=== PATIENT | female | born 1985 | race Caucasian/White ===

== ENCOUNTER 2018-09-28 13:13 | Inpatient (IN) | END 2018-09-29 15:00 | disposition home or self-care (01) | DRG 833 ==

== ENCOUNTER 2018-12-16 13:25 | Inpatient (IN) | payer OTHER ==
[~2018-12-16] VITALS: Ht 160 cm; Wt 71.5 kg
[~2018-12-16 13:25] MED LIST: PREN1TAB71 PO
[2018-12-16] MEDS ORDERED: OXYTOCIN 30 UNITS/LR 500 ML IV SCH (14:30)
[2018-12-16] MEDS ORDERED: OXYTOCIN 30 UNITS/LR 500 ML IV PRN (14:30)
[2018-12-16] MEDS ORDERED: CARBOPROST 250 MCG INJ IM PRN (14:30)
[2018-12-16] MEDS ORDERED: CEFAZOLIN 2 GM/50 ML (PMX) 50 ML IVPB SCH (14:30)
[2018-12-16] MEDS ORDERED: MISOPROSTOL 200 MCG TAB PR PRN (14:30)
[2018-12-16] MEDS ORDERED: METHYLERGONOVINE 0.2 MG INJ IM PRN (14:30)
[2018-12-16 15:36] VITALS: Ht 160 cm; Wt 71.5 kg
[2018-12-16] MEDS: BETAMET NA PHOS/AC(6 MG/ML) 2 ML INJ SYG IM SCH (15:36)
[2018-12-16] MEDS: LACTATED RINGER'S 1,000 ML IV SCH ×2 (17:01→23:12)
--- NOTE | 2018-12-16 21:20 | HP ---
Date/Time of Note Date/Time of Note DATE: 12/16/18 TIME: 21:08 OB - History Hx of Present Free Text/Dictation 33 y.o. G1 with an IUP at 35w 4d by dates admitted for steroid administration and delivery by after 24 hours. Pt has a twin as a result of injectable infertility meds and IUI due to low ovarian reserve. The twins are Di-Di and, most remarkably, had an episode of severe growth restriction and very low fluid with twin A at 24 weeks and received steroids and opted for bedrest and twin A eventually regained fluid and started to grow again and all has been OK until now. Today she was seen by Dr Martell and Twin A again is growth restricted and the MCA/UA PI ratio is <1% (otherwise the BPP and THAI are normal). Pt is being admitted to [facility] for delivery, albeit , as it is time but not an emergency. Twin A is 2203 grams. Twin B is 2655 grams. Estimated Due Date: Jan 16, 2019 : 1 Para: 0 Care: Good Care Ultrasounds: Abnormal US findings (see above.) Obstetrical Complications: Growth Restriction Medical Complications: None Past Family/Social History * Past Medical, Surgical, Family and Obstetric Histories reviewed from chart. Blood Type: O- (rcvd Rhogam 11/05/18) Rubella: immune RPR/VDRL: Negative GBS Status: Unknown HBsAG: Negative OB Admission Exam Physical Exam HEENT: WNL Heart: Rhythm Normal Lungs: Clear Abdomen: WNL Extremities: Normal Reflexes: Normal Cervical Dilatation: None Effacement: 0% Membranes: Intact Heart Rate: 140's Accelerations: Accelerations Present Decelerations: No Decelerations Varibility: Moderate Contractions on Admission: None Last 72 hours Lab Results CBC & BMP 12/16/18 15:57 OB Assessment/Plan Reason for admission: section, IUP - Plan: Section Other plan: Beta-methasone x 2 at 12 hour intervals. ABDIEL PATEL MD Dec 16, 2018 21:18
[2018-12-17] MEDS: BETAMET NA PHOS/AC(6 MG/ML) 2 ML INJ SYG IM SCH (03:41)
[2018-12-17] MEDS ORDERED: OXYTOCIN 30 UNITS/LR 500 ML BAG IV ONE (07:00)
[2018-12-17] MEDS: LACTATED RINGER'S 1,000 ML IV SCH ×2 (07:02→13:48)
[2018-12-17] MEDS ORDERED: CITRIC ACID/NA CITRATE 30 ML CUP ONE (13:44)
[2018-12-17] MEDS ORDERED: CITRIC ACID/NA CITRATE 30 ML CUP PO ONE (14:00)
--- NOTE | 2018-12-17 18:39 | PREAC ---
Date/Time of Note Date/Time of Note DATE: 12/17/18 TIME: 18:39 Anesthesia Eval and Record Evaluation Time Pre-Procedure Interview DATE: 12/17/18 TIME: 18:39 Age 33 Sex female NPO: 8 hrs Preoperative diagnosis twins gestation Planned procedure cs Past Medical History Past Medical History: None Surgery & Anesthesia Issues No known issue Meds Anticoagulation: No Beta Annmarie within 24 hr: No Reason Beta Annmarie not given: Pt. not on B-Annmarie Reported Medications Vit No.130/Iron/FA ( Tablet) 1 Each Tablet, 1 EACH PO, TAB 09/28/18 Current Medications Lactated Ringer's 1,000 ml @ 125 mls/hr Q8H IV Last administered on 12/17/18at 13:48; Admin Dose 125 MLS/HR; Start 12/16/18 at 14:05 Cefazolin Sodium/ Dextrose 50 ml @ 100 mls/hr ONCE IVPB ; Start 12/16/18 at 14:30 Oxytocin/Lactated Ringer's 500 ml @ 125 mls/hr POST IV ; Start 12/16/18 at 14:30 Oxytocin/Lactated Ringer's 500 ml @ 0 mls/hr ONCE PRN IV VAGINAL BLEEDING; Start 12/16/18 at 14:30 Methylergonovine Maleate (Methergine) 0.2 mg ONCE PRN IM VAGINAL BLEEDING; Start 12/16/18 at 14:30 Carboprost Tromethamine (Hemabate) 250 mcg ONCE PRN IM VAGINAL BLEEDING; Start 12/16/18 at 14:30 Misoprostol (Cytotec) 1,000 mcg ONCE PRN TN VAGINAL BLEEDING; Start 12/16/18 at 14:30 Meds reviewed: Yes Allergies Coded Allergies: No Known Allergy (Unverified , 09/28/18) Allergies Reviewed: Yes Labs/Studies Labs Reviewed: Reviewed by anesthesiologist Result Diagram: 12/16/18 1557 test: Positive Pre-procedure Exam Airway: Adequate mouth opening, Adequate thyromental dist Mallampati: Mallampati II Teeth: Normal Lung: Normal Heart: Normal ASA Physical Status ASA physical status: 2 Emergency: None Planned Anesthetic Neuraxial: Spinal Planned Pain Management Sub-arachniod narcotics Pre-operative Attestations Prior to commencing anesthesia and surgery, the patient was re-evaluated, there was verification of: *The patient's identity *The results of appropriate recent lab work and preoperative vital signs *The above evaluation not changing prior to induction *Anesthetic plan, risk benefits, alternative and complications discussed with patient/family; questions answered; patient/family understands, accepts and wishes to proceed. ALTAGRACIA ROTHMAN Dec 17, 2018 18:39
[2018-12-17] MEDS ORDERED: FENTAnyl 50 MCG/ML VIAL IV PRN ×3 (19:00)
[2018-12-17] MEDS ORDERED: ONDANSETRON 4 MG INJ IV PRN ×2 (19:00)
[2018-12-17] MEDS ORDERED: NALOXONE (0.4 MG/ML) INJ IV PRN (19:00)
[2018-12-17] MEDS ORDERED: HYDROmorphONE 0.5 MG/0.5 ML SYG IV PRN ×2 (19:00)
[2018-12-17] MEDS ORDERED: DIPHENHYDRAMINE 50 MG INJ IV PRN ×2 (19:00)
[2018-12-17] MEDS ORDERED: HYDROmorphONE 1 MG/5 ML IV SYRINGE IV PRN ×3 (19:00)
[2018-12-17] MEDS ORDERED: METOCLOPRAMIDE 10 MG INJ IV PRN (19:00)
[2018-12-17] MEDS ORDERED: ALBUTEROL 0.083% (NEB) 2.5 MG/3 ML AMP HHN PRN (19:00)
[2018-12-17] MEDS ORDERED: KETOROLAC 30 MG INJ IV PRN (19:00)
[2018-12-17] MEDS ORDERED: morphine SULFATE/PF (10 MG/10 ML) INJ ONE (19:25)
[2018-12-17] MEDS ORDERED: PHENYLephrine (100 MCG/ML) 5ML SYG ONE (19:34)
--- NOTE | 2018-12-17 21:01 | PAC ---
Date/Time of Note Date/Time of Note DATE: 12/17/18 TIME: 21:01 Post-Anesthesia Notes Post-Anesthesia Note Activity: WNL Respiratory function: WNL Cardiovascular function: WNL Mental status: Baseline Pain reasonably controlled: Yes Hydration appropriate: Yes Nausea/Vomiting absent: Yes ALTAGRACIA ROTHMAN Dec 17, 2018 21:01
[2018-12-17] MEDS ORDERED: LACTATED RINGER'S 1,000 ML IV SCH (21:17)
[2018-12-17] MEDS ORDERED: OXYTOCIN 30 UNITS/LR 500 ML IV SCH (21:17)
[2018-12-17] MEDS ORDERED: OXYTOCIN 30 UNITS/LR 500 ML IV PRN (21:30)
[2018-12-17] MEDS ORDERED: METHYLERGONOVINE 0.2 MG INJ IM PRN (21:30)
[2018-12-17] MEDS ORDERED: LANOLIN HPA 1 PKT TOP PRN (21:30)
[2018-12-17] MEDS ORDERED: CARBOPROST 250 MCG INJ IM PRN (21:30)
[2018-12-17] MEDS ORDERED: NACL 0.9% 3 ML SYG IV SCH (21:30)
[2018-12-17] MEDS ORDERED: MISOPROSTOL 200 MCG TAB PR PRN (21:30)
--- NOTE | 2018-12-17 21:31 | OPR ---
Operative Report Planned Procedure Procedure date Dec 17, 2018 Procedure(s) Primary . Performed by see signature line Dough Raiser: SKIP TRUONG MD Anesthesiologist: ALTAGRACIA ROTHMAN Pre-procedure diagnosis Twin IUP at 35w 5d. Twin A severe IUGR with MCA/UA PI ratio <1. [id number] Anesthesia Type: [id number] spinal Post-Procedure Post-procedure diagnosis Same. Findings Twin A viable baby boy weighing 1965 grams, or 4# 5 oz, 17" long, and with Apgars 7/9. Twin B viable baby boy weighing 2590 grams or 5# 11 oz, 19.5" long, and with Apgars of 6/9. Estimated Blood Loss: 400 - 500 mls Specimen(s) Placentas Grafts/Implant(s) none Complication(s) none Pt Condition post procedure: stable Disposition: PACU Procedure Description Under satisfactory spinal anesthesia, the patient was prepped and draped and placed in a supine position, tilted to the left. Pfannenstiel incision was made, carried through the subcutaneous tissue. Bleeders brought under control with electrocautery. Fascia incised to the length of the incision. Rectus muscles from the fascia, divided midline. Peritoneum exposed, entered through a transverse incision. Transverse incision was made in the lower segment of the uterus. Amniotic sac of Twin A ruptured. Clear amniotic fluid noted. Both babies are transverse lie with the heads on the left. Buttocks were delivered first until the legs could be delivered. The baby was then delivered to the shoulders and the arms were delivered. The head was delivered with fundal pressure. The mouth and nares were bulb suctioned. The cord was doubly clamped and cut after cutting a section for cord gases. The baby was brought to the warmer and the n eonatal team for immediate attention. The second baby was delivered in exactly the same fashion also collecting cord gases. The 2 separate placentas were delivered manually intact and appeared grossly normal. Uterine cavity was cleaned with wet sponge and drainage established. A 3 cm fibroid at the incision was removed. The uterus closed in 2 layers using #1 chromic in continuous f ashion. Peritoneal cavity irrigated with warm saline.The uterus was replaced back into the abdomen. The uterine incision was examined again and noted to be dry. Sponge, needle and instrument count reported to be correct. Abdominal peritoneum closed with 2-0 Chromic continuously. Rectus muscle approximated with the same suture. Fascia closed with 0-Vicryl. The subcutaneous tissue was irrigated and closed with 2-0 Chromic and skin was closed with 3-0 Monocryl in a subcuticular stitch. Steristrips with Mastosol were placed. Estimated blood loss 400 mL. Urine was clear. ABDIEL PATEL MD Dec 17, 2018 21:31
[2018-12-17] MEDS: KETOROLAC 30 MG INJ IV PRN (23:05)
[2018-12-17 23:35] VITALS: BP 127/67; PULSE 91; RESP 16
[2018-12-18 00:35] VITALS: BP 128/72; PULSE 80; RESP 16
[2018-12-18 05:00] VITALS: BP 117/68; PULSE 77; RESP 18
[2018-12-18 08:00] VITALS: BP 118/77; PULSE 68; RESP 19
[2018-12-18 15:50] VITALS: BP 109/65; PULSE 82; RESP 18
[2018-12-18] MEDS: KETOROLAC 30 MG INJ IV PRN (15:58)
[2018-12-18 20:00] VITALS: BP 110/61; PULSE 77; RESP 18
--- NOTE | 2018-12-18 20:50 | QN ---
Documentation Comment POD #1 s/p Pt is doing well and in good spirits. baby B easily and has colostrum. Excellent pain control. Still with IV and waterman. Baby A in NICU for weight but is doing well and nipple feeding small amounts and blood sugars have improved. T=99 BP 109/65 Dressing C/D/I. Abdomen non-distended. Lochia moderate. Ext NT, no edema. WBC 21.4 Hgb 8.1 Plts 129K P: Repeat CBC in AM. D/C IV and waterman this evening. Will then encourage ambulation and switch pt to oral pain meds. Continue care. ABDIEL PATEL MD Dec 18, 2018 20:50
[2018-12-18] MEDS: IBUPROFEN 800 MG TAB PO SCH (21:33)
[2018-12-19] MEDS: OXYCODONE/ACETAMINOPHEN (5/325) TAB PO PRN ×5 (00:50→21:18)
[2018-12-19 04:40] VITALS: BP 117/68; PULSE 72; RESP 16
[2018-12-19] MEDS: IBUPROFEN 800 MG TAB PO SCH ×4 (06:06→23:45)
[2018-12-19 10:30] VITALS: BP 109/61; PULSE 76; RESP 18
--- NOTE | 2018-12-19 12:08 | QN ---
Documentation Comment POD #2 Feeling better today.Was doing well painwise until went to see the baby in the NICU and stayed a little long. Got dosed up on pain meds and did better. + flatus. T=98 BP 117/68 Incision C/D/I. No erythema noted. Lochia minimal. Ext NT, no edema. WBC 16.3 Hgb 7.7 Plts 125K P: Change the Ibuprofen to q 6 hours. Will wait on Baby B circumcision until the baby is feeding better. Pt will most likely stay until Thursday 12/21 for d/c. ABDIEL PATEL MD Dec 19, 2018 12:08
[2018-12-19 17:06] VITALS: BP 114/66; PULSE 85; RESP 18
[2018-12-19 20:20] VITALS: BP 112/63; PULSE 80; RESP 18
[2018-12-20] MEDS: OXYCODONE/ACETAMINOPHEN (5/325) TAB PO PRN ×4 (03:34→20:55)
[2018-12-20 04:00] VITALS: BP 118/68; PULSE 75; RESP 16
[2018-12-20] MEDS ORDERED: BISACODYL 10 MG SUPP PR ONE (05:00)
[2018-12-20] MEDS: IBUPROFEN 800 MG TAB PO SCH ×3 (06:22→17:44)
[2018-12-20 07:55] VITALS: BP 117/68; PULSE 81; RESP 18
[2018-12-20] MEDS ORDERED: DIPHTH/TET/ACEL PERTUSS (ADULT) 0.5 ML VIAL IM* ONE (09:00)
[2018-12-20] MEDS: DOCUSATE SODIUM 100 MG CAP PO SCH ×2 (09:04→20:55)
[2018-12-20 16:15] VITALS: BP 118/71; PULSE 86; RESP 18
[2018-12-20 20:30] VITALS: BP 119/66; PULSE 81; RESP 18
[2018-12-21] MEDS: IBUPROFEN 800 MG TAB PO SCH ×4 (00:06→17:52)
[2018-12-21 03:51] VITALS: BP 107/59; RESP 18
[2018-12-21 08:05] VITALS: BP 123/78; PULSE 78; RESP 18
[2018-12-21] MEDS: DOCUSATE SODIUM 100 MG CAP PO SCH ×2 (08:08→20:33)
[2018-12-21] MEDS: OXYCODONE/ACETAMINOPHEN (5/325) TAB PO PRN ×3 (08:09→20:22)
[2018-12-21 16:04] VITALS: BP 122/68; PULSE 80; RESP 18
--- NOTE | 2018-12-21 18:03 | PD.PPDC ---
NEWS AGENT Discharge Instruction Condition [id number] Patient Condition: Anhsa4e Good Diet [id number] Diet: Axrow1v Resume Regular Diet Activity/Restrictions [id number] Activity: Trkpi0r Bedrest May be up to bathroom May be up for meals May Shower [id number] Restrictions: Xmmhn1q No Exercising No Lifting No Driving Minimize Walking Minimize Stair-climbing No Sexual Activity Nothing in the Vagina No [place] No Tampons, douche Wound/Drain Care Instructions [id number] Wound/Drain Care [id number] Remove Steri Strips in 2 Instructions: weeks Keep clean and dry Follow-up Follow-up with Physician: 2, Week/Weeks Return to clinic for [id number] HEEL BLACKER Instructions: Avvll1v Fever greater than 101 Chills Worsening abdominal pain Excessive Vaginal Bleeding Etsld7Yr OB Instructions: Bzjzd7n Breast Tenderness Depression Qcand8Nm Surgical Instructions: Scwql8i Incisional Drainage Incisional Redness ABDIEL PATEL MD Dec 21, 2018 18:03
--- NOTE | 2018-12-21 18:05 | DS ---
Date/Time of Note Date/Time of Note DATE: 12/21/18 TIME: 18:04 Obstetrical Discharge Record Final Diagnosis Final Diagnosis: delivered Other Final Diagnosis Twins 35+ weeks. Twin A severe IUGR. Section Section: Primary Complications Complications: Low weight 1500-2500gms Complications Multiple Gestation Augmentation: No Induction: No Condition on Discharge Physical Assessment Last Vitals: T=98.6 BP 122/68 Bowel Movement: Yes Breast: Filling Fundus: Firm Abdomen and Incision: C/D/I. Calf Tenderness: No Patient Condition: Good ABDIEL PATEL MD Dec 21, 2018 18:05
[2018-12-21 19:40] VITALS: BP 118/64; PULSE 78; RESP 18
--- NOTE | 2018-12-27 18:47 | CONS ---
Consultation Date/Type/Reason Admit Date/Time Dec 16, 2018 at 13:25 Initial Consult Date 12/18/18 Type of Consult Anesthesiology Reason for Consultation Follow up Date/Time of Note DATE: 12/27/18 TIME: 18:47 24 HR Interval Summary Free Text/Dictation Pt seen and examined at bedside on 12/18/18 POD#1 s/p c/s. Pt received spinal duramorph for post op pain control. No N/V/JACOBSON/Numbness in extremities. ALTAGRACIA ROTHMAN Dec 27, 2018 18:47
== END 2018-12-21 23:00 | disposition home or self-care (01) | DRG 788 ==
LOC: L-D 13:25 → PP1 12-17 23:33 → EDSTATUS 01-16 13:21
PROVIDERS: ADMIT Obstetrics & Gynecology; ATTEND Obstetrics & Gynecology
PROC: 0UB90ZZ Excision of Uterus, Open Approach (ICD-10-PCS; 2018-12-17)
PROC: 10D00Z1 Extraction of Products of Conception, Low, Open Approach (ICD-10-PCS; principal; 2018-12-17 18:00)
DX: O36.5931 Maternal care for other known or suspected poor fetal growth, third trimester, fetus 1 (principal); O30.043 Twin pregnancy, dichorionic/diamniotic, third trimester; O34.13 Maternal care for benign tumor of corpus uteri, third trimester; D25.9 Leiomyoma of uterus, unspecified; Z37.2 Twins, both liveborn; Z3A.34 34 weeks gestation of pregnancy
CPT/HCPCS: 85025; 85610; 85730; 86592; 86850; 86870; 86885; 86900; 86901; 87340; 88305; 88307; 90686; 90715; 99464; J0690; J0702; J1885; J2274; J2370; J2405; J2590; J2790; J3010; J7120